=== PATIENT | female | born 1970 | race Caucasian/White ===

== ENCOUNTER → 2020-08-15 | Outpatient (CLI) | payer BC ==
--- NOTE | 2020-08-15 13:00 | ECHOF ---
Referral Reason:R01.1 cardiac murmur MEASUREMENTS -------- HEIGHT: 157.5 cm WEIGHT: 78.5 kg BP: RVIDd: 2.7 cm (< 3.3) IVSd: 1.5 cm (0.6 - 1.1) LVIDd: 3.6 cm (3.9 - 5.3) LVPWd: 1.5 cm (0.6 - 1.1) IVSs: 1.9 cm LVIDs: 2.2 cm LVPWs: 1.9 cm LAESV Index (A-L): 18.13 ml/m Ao Diam: 2.8 cm (2.0 - 3.7) AV Cusp: 1.9 cm (1.5 - 2.6) LA Diam: 3.4 cm (2.7 - 3.8) MV EXCURSION: 18.395 mm (> 18.000) MV EF SLOPE: 114 mm/s (70 - 150) EPSS: 0.5 cm MV E Ponce: 0.99 m/s MV DecT: 164 ms MV A Ponce: 0.78 m/s MV E/A Ratio: 1.26 RAP: 5.00 mmHg RVSP: 24.09 mmHg FINDINGS -------- This was a technically adequate study. The left ventricular size is normal. There is mild concentric left ventricular hypertrophy. Overa ll left ventricular systolic function is normal with, an EF between 55 - 60 %. The diastolic fillin g pattern is normal for the age of the patient 11.04. The right ventricle is normal in size. The left atrial size is normal. Normal LA size by volume 22+/-6 ml/m2. The right atrial size is normal. Interatrial and interventricular septum intact. The aortic valve is trileaflet and appears structurally normal. The mitral valve is normal. Mild mitral regurgitation is present. The tricuspid valve appears structurally normal. Mild tricuspid regurgitation present. Right vent ricular systolic pressure is normal at < 35 mmHg. There is no pulmonic regurgitation present. The aortic root size is normal. Normal inferior vena cava with normal inspiratory collapse consistent with estimated right atrial pre ssure of 5 mmHg. There is no pericardial effusion. CONCLUSIONS -------- 1. The left ventricular size is normal. 2. There is mild concentric left ventricular hypertrophy. 3. Overall left ventricular systolic function is normal with, an EF between 55 - 60 %. 4. The diastolic filling pattern is normal for the age of the patient 11.04 5. Mild mitral regurgitation is present. 6. Mild tricuspid regurgitation present. 7. There is no pericardial effusion. ELECTRONICS TECHNICIAN: Winnie Burr RDCS
== END | disposition home or self-care (01) ==
LOC: RADECHMAIN 10:25
PROVIDERS: ATTEND Family Medicine
DX: I08.1 Rheumatic disorders of both mitral and tricuspid valves (principal)
CPT/HCPCS: 93306

== ENCOUNTER → 2020-12-30 | Outpatient (CLI) | payer BC ==
--- NOTE | 2020-12-30 11:21 | P.STRESS ---
- Stress Test Note Stress Test Results/Findings: Exam Performed: NM stress cardiolite complete Exam Date: 12/30/20 Reason for Exam: Chest Pain Height: 5 ft 2 in Weight: 79.379 kg Protocol: Renato Stage: 3 Duration of Exercise: 8:11 Resting Heart Rate: 76 Resting Blood Pressure: 98/70 Maximum Achieved Heart Rate: 168 Maximum Achieved Blood Pressure: 129/61 85% PMHR: 143 100% PMHR: 168 METS: 9.9 Technologist Comment: Stress Test Results/Findings: This is a 50-year-old female with history of hypertension and abnormal EKG being evaluated for symptoms of chest pain and shortness of breath. Stress data Baseline EKG showed sinus rhythm with minor nonspecific ST-T changes. Blood pressure at rest is 98/70 with pulse rate of 76. Patient walked on the Renato protocol for about 8 minutes and 11 seconds achieving a maximal heart rate of 168 with blood pressure 129/61. EKGs taken during and after exercise did not reveal any change of ischemia. Patient did not experience any chest pain. No arrhythmias are documented. Final impression #1. Negative stress test #2. Patient did not experience any chest pain #3. No arrhythmias were noted. #4. Patient's exercise capacity is good
--- NOTE | 2020-12-30 11:22 | NM ---
EXAMINATION TYPE: NM stress cardiolite complete DATE OF EXAM: 12/30/2020 COMPARISON: NONE HISTORY: Chest pain TECHNIQUE: After the intravenous administration of 9.8 mCi Tc 99m Sestamibi - Rest images obtained 6 0 minutes post injection. The patient exercised using a INES protocol and 1 minute prior to peak e xercise was injected with 25.3 mCi Tc 99m Sestamibi - Stress images obtained 25 minutes post injectio n. FINDINGS: Targeted heart rate was achieved during performance of the study. Review of stress and rest SPECT francisco ges demonstrates no distinct perfusion abnormality. Gated analysis shows normal wall motion with an estimated left ventricular ejection fraction of 77 %. IMPRESSION: No scintigraphic evidence for reversible ischemia
== END | disposition home or self-care (01) ==
LOC: RADNMMAIN 07:48
PROVIDERS: ATTEND Family Medicine
DX: R07.89 Other chest pain (principal); R94.31 Abnormal electrocardiogram [ECG] [EKG]
CPT/HCPCS: 93017; 78452; A9500